=== PATIENT | female | born 1970 | race Caucasian/White ===

== ENCOUNTER 2018-03-24 01:06 | Observation (INO) | payer OTHER ==
[~2018-03-24] VITALS: Ht 165.1 cm; Wt 82.3 kg
[~2018-03-24 01:06] MED LIST: ADVIL,NUPRIN,M200 MG PO; AIRBORNE TABLE1 EAC1 PO; BENADRYL50 MG PO; COLACE100 MG PO; CYMBALTA30 MG PO; DIFLUCAN150 MG PO; EXCEDRIN MIGRA1 EAC3 PO; GLUCOPHAGE1000 MG PO; GLUCOVANCE 21 TABLET PO; GLYBURIDE5 MG PO; HYCODAN SYRUP480 ML PO; KEFLEX500 MG PO; LISINOPRIL5 MG PO; LOPID600 M1 PO; LOPID600 MG PO; METFORMIN HCL1000 MG PO; METFORMIN HCL500 MG PO; MOTRIN400 MG PO; MUCINEX600 MG PO; NEURONTIN300 MG PO; ONE TOUCH ULTR1 EAC4 MC; ROBITUSSIN NIG118 ML PO; SEROQUEL12.5 MG PO; SEROQUEL50 MG PO; SIMVASTATIN PO; SIMVASTATIN20 MG PO; TESSALON PERLE100 MG PO; TYLENOL EXTRA500 MG PO; TYLENOL REGULA325 MG PO; TYLENOL WITH C1 EACH PO; ZESTRIL,PRINIVIL5 MG; ZESTRIL5 MG PO; ZITHROMAX Z-PA250 MG PO; ZOFRAN ODT4 MG PO
[2018-03-24 01:35] LABS: HEMATOCRIT 37.1 % (36.0-46.0); HEMOGLOBIN 12.7 G/DL (11.9-15.5); MCH 30.2 PG (29.0-34.0); MCHC 34.2 G/DL (30.0-36.0); MCV 88.1 FL (83-99); PLATELET COUNT 338 K/uL (156-360); RBC DIS.WIDTH-SD 41.8 % (39-53); RED BLOOD COUNT 4.21 M/uL (3.80-5.20); WHITE BLOOD COUNT 8.9 K/uL (4.1-10.2)
[2018-03-24 01:38] LABS: CARBON DIOXIDE (BICARBONATE) 25.7 MEQ/L (20-31)
[2018-03-24 01:46] LABS: CHLORIDE 97 mEq/L (99-109); POTASSIUM 4.4 mEq/L (3.7-5.4); SODIUM 134 mEq/L (136-147)
[2018-03-24 01:52] LABS: CREATININE 1.8 mg/dL (0.6-1.3); GFR ESTIMATE (CALCULATED) 32 mL/min/
[2018-03-24 01:53] LABS: UREA NITROGEN (BUN) 30 mg/dL (9-23)
[2018-03-24 02:00] LABS: GLUCOSE 637 mg/dL (70-99)
[2018-03-24 02:15] LABS: APPEARANCE CLEAR ((CLEAR)); BILIRUBIN NEGATIVE; BLOOD LARGE; COLOR STRAW ((YELLOW)); GLUCOSE (STRIP) >=500; KETONES NEGATIVE; LEUKOCYTES NEGATIVE; NITRITE NEGATIVE; PROTEIN (STRIP) NEGATIVE; SPECIFIC GRAVITY 1.024 (1.000-1.030); UROBILINOGEN 0.2 MG/DL (0.2-1.0)
[2018-03-24 02:22] LABS: BACTERIA NONE SEEN /HPF; EPITHELIAL CELLS RARE /HPF; MUCUS NONE SEEN /LPF; RED BLOOD CELLS TNTC /HPF (0-5); UCUL ADDED? YES; WHITE BLOOD CELLS 0-5 /HPF (0-5)
[2018-03-24] MEDS ORDERED: NEURONTIN600 MG PO (05:04)
[2018-03-24] MEDS ORDERED: AMARYL4 MG PO (05:05)
[2018-03-24] MEDS ORDERED: LIPITOR80 MG PO (05:05)
[2018-03-24] MEDS ORDERED: TRICOR145 MG PO (05:05)
[2018-03-24] MEDS ORDERED: INVOKANA300 MG PO (05:05)
[2018-03-24] MEDS ORDERED: ASPIR 8181 M1 PO (05:06)
[2018-03-24] MEDS ORDERED: OMEPRAZOLE40 M1 PO (05:06)
[2018-03-24] MEDS ORDERED: SINGULAIR10 MG PO (05:06)
[2018-03-24] MEDS ORDERED: NEURONTIN300 MG PO (05:15)
[2018-03-24 05:54] VITALS: BP 147/80
[2018-03-24 07:20] VITALS: BP 131/77
[2018-03-24 08:26] LABS: ALBUMIN 4.7 G/DL (3.2-4.8); MAGNESIUM 1.8 mg/dl (1.3-2.7); TOTAL BILIRUBIN 0.3 MG/DL (0.0-1.0)
[2018-03-24 08:32] LABS: ALKALINE PHOSPHATASE 51 IU/L (3-129); ALT (GPT) 30 IU/L (3-49); AST (GOT) 17 IU/L (2-34); TOTAL PROTEIN 8.1 G/DL (6.4-8.3)
[2018-03-24 11:29] LABS: ALBUMIN 3.8 g/dL (3.2-4.8); CHLORIDE 104 mEq/L (99-109); SODIUM 138 mEq/L (136-147)
[2018-03-24 11:31] LABS: TOTAL PROTEIN 6.2 g/dL (6.4-8.3)
[2018-03-24 11:32] LABS: GLUCOSE 227 mg/dL (70-99)
[2018-03-24 11:33] LABS: TOTAL BILIRUBIN 0.2 mg/dL (0.0-1.0)
[2018-03-24 11:35] LABS: ALKALINE PHOSPHATASE 43 IU/L (3-129); GFR ESTIMATE (CALCULATED) 57 mL/min/
[2018-03-24 11:36] LABS: CREATININE 1.1 mg/dL (0.6-1.3); UREA NITROGEN (BUN) 26 mg/dL (9-23)
[2018-03-24 11:37] LABS: AST (GOT) 12 IU/L (2-34); DIRECT BILIRUBIN 0.1 mg/dL (0.0-0.3)
[2018-03-24 11:38] LABS: ALT (GPT) 29 IU/L (3-49)
[2018-03-24 11:50] VITALS: BP 129/73
[2018-03-25 10:27] LABS: HEMOGLOBIN A1c (GLYCOHEMOGLOB) 8.3 % (Below 5.7)
== END 2018-03-24 14:47 | disposition home or self-care (01) ==
LOC: EME 01:06 → EDOF 04:22 → 4SOUTH 04:22 → ENRESERV 04:25 → 4SOUTH 05:45
PROVIDERS: Emergency Medicine; Internal Medicine; Physician Assistant Medical
DX: E11.65 Type 2 diabetes mellitus with hyperglycemia (principal); R21 Rash and other nonspecific skin eruption; T38.0X5A Adverse effect of glucocorticoids and synthetic analogues, initial encounter; D72.829 Elevated white blood cell count, unspecified; R79.89 Other specified abnormal findings of blood chemistry; E87.2 Acidosis; E86.0 Dehydration; Z79.84 Long term (current) use of oral hypoglycemic drugs; E78.1 Pure hyperglyceridemia; E11.40 Type 2 diabetes mellitus with diabetic neuropathy, unspecified; Z87.440 Personal history of urinary (tract) infections; Z87.442 Personal history of urinary calculi; K21.9 Gastro-esophageal reflux disease without esophagitis; G43.909 Migraine, unspecified, not intractable, without status migrainosus; K44.9 Diaphragmatic hernia without obstruction or gangrene; E78.5 Hyperlipidemia, unspecified; F41.8 Other specified anxiety disorders; Z87.891 Personal history of nicotine dependence; Z83.3 Family history of diabetes mellitus; Z82.49 Family history of ischemic heart disease and other diseases of the circulatory system; Z84.1 Family history of disorders of kidney and ureter; Z88.1 Allergy status to other antibiotic agents; Z88.2 Allergy status to sulfonamides; E66.3 Overweight; Z68.29 Body mass index [BMI] 29.0-29.9, adult; N17.9 Acute kidney failure, unspecified; R31.29 Other microscopic hematuria
CPT/HCPCS: 80048; 80048 91; 80053; 80076; 81003; 82010; 82803; 82948; 83036; 83605; 83735; 85027; 87040; 87086; 99281; 99285; G0378; J1650; J1815; J3480; J7030